=== PATIENT | female | born 1970 | race Two or more races ===

== ENCOUNTER 2022-09-02 07:59 | Day surgery (SDC) | payer MEDICAID ==
[2022-09-02] VITALS (8 sets, daily range): BP systolic 130–175; BP diastolic 61–94
[~2022-09-02] VITALS: Ht 154.9 cm; Wt 115.2 kg
[~2022-09-02 07:59] MED LIST: ANGIOMAX 250 MG VIAL IV ONE; HEPARIN SODIUM (PORCINE) 5000 UNITS/ML 1ML VIAL ONE; IODIXANOL 320MG/ML 100ML BTL IV ONE; LIDOCAINE 2%HCL (LOCAL ANESTH.) INJ 10ml MDV ONE; LISI-716 PO; MIDAZOLAM HCL 2MG/2ML 2ml VIAL (1mg/ml) ONE; NIFE1TAB30 PO; SODIUM CHL 0.9% 0 ML ONE; VERAPAMIL 2.5MG/ML INJ 2ML VIAL IV ONE; fentaNYL CITRATE 100 MCG/2 ML VL ONE
[2022-09-02] MEDS ORDERED: IOHEXOL 350 MG/ML 100ML IJ ONE (08:33)
== END 2022-09-02 11:00 | disposition home or self-care (01) ==
LOC: CATH 07:59
PROVIDERS: ATTEND Internal Medicine Cardiovascular Disease
DX: I27.20 Pulmonary hypertension, unspecified (principal); R06.02 Shortness of breath; R07.89 Other chest pain; I10 Essential (primary) hypertension; E66.01 Morbid (severe) obesity due to excess calories; D64.9 Anemia, unspecified; R06.09 Other forms of dyspnea; I51.7 Cardiomegaly; Z20.822 Contact with and (suspected) exposure to COVID-19
CPT/HCPCS: 93460; C1757; C1769; C1894; J1644; J2001; J2250; J3010; Q9967; U0003